=== PATIENT | female | born 1945 ===

== ENCOUNTER 2019-02-13 07:28 | Observation (INO) ==
[2019-02-13] MEDS ORDERED: ONDANSETRON 4 MG/2 ML VIAL IV PRN (10:57)
[2019-02-13] MEDS ORDERED: PROMETHAZINE 25 MG/1 ML VIAL IM PRN (10:57)
[2019-02-13] MEDS ORDERED: LABETALOL 20 MG/4 ML SYRINGE IV ONE (11:12)
[2019-02-13 11:17] LABS: Apearance,Urine CLEAR (Clear); Bacteria,Urine Occasional /HPF (Few); Bilirubin,Urine Negative (Negative); Blood, Urine Negative (Negative); Glucose,Urine (UA) Negative (Negative); Hyaline Casts,Urine 3 /LPF (0-3); Ketones,Urine 5 mg/dL (Negative); Mucus,Urine Occasional /LPF (Occasional); Nitrite,Urine Negative (Negative); Protein,Urine Negative; RBC,Urine 6 /HPF (0-4); Squamous Epithelial Cell,Urine Occasional /HPF (0-10); Urine Color Yellow (Yellow); Urine Specific Gravity 1.025 (1.001-1.035); Urine Urobilinogen < 2.0 EU/DL (0.2-1.0); WBC,Urine <1 /HPF (0-6)
[2019-02-13 11:30] LABS: Thyroid Stimulating Hormone 0.77 uIU/ml (0.358-3.74)
[2019-02-13] MEDS: amLODIPine 10 MG TABLET PO SCH (12:56)
[2019-02-13] MEDS: SODIUM CHLORIDE 0.9% 1,000 ML IV SCH ×2 (12:57→20:59)
[2019-02-13] MEDS ORDERED: ENOXAPARIN 30 MG/0.3 ML SYRINGE SUBCUT SCH (21:00)
[2019-02-13] MEDS: DICYCLOMINE 20 MG TABLET PO SCH (21:41)
[2019-02-13] MEDS: carvediloL 12.5 MG TABLET PO SCH (21:41)
[2019-02-14 05:15] LABS: Basophils % 0.2 % (0.0-0.8); Eosinophils # 0.2 10*3/uL (0.0-0.87); Eosinophils % 2.7 % (0.00-10.9); Hematocrit 37.6 VOL% (35.7-47.0); Hemoglobin 11.7 GM/DL (12.0-16.0); Immature Granulocytes % 0.5 %; Immature Granulocytes Absolute 0.03 #; Lymphocytes # 1.2 10*3/uL (1.4-4.0); Lymphocytes % 21.5 % (21.3-54.2); Mean Corpuscular HGB Conc 31.1 GM/DL (32-36); Mean Corpuscular Volume 97.9 FL (87-102); Mean Platelet Volume 12.2 FL (9.6-12.0); Neutrophils % 64.1 % (38.7-73.9); Platelet Count 135 T/CUMM (130-400); Red Blood Count 3.84 MC/CUMM (3.8-5.5); Red Cell Distribution Width 14.1 % (9.3-17.3); White Blood Count 5.6 T/CUMM (4-12)
[2019-02-14 05:52] LABS: Calcium 7.3 MG/DL (8.5-10.1); Osmolality,Calculated 287.8 MOS/KG (273-304)
[2019-02-14] MEDS ORDERED: ASPIRIN EC 325 MG TABLET PO SCH (09:00)
[2019-02-14] MEDS ORDERED: PYRIDOSTIGMINE 60 MG TABLET PO SCH (09:00)
[2019-02-14] MEDS ORDERED: PANTOPRAZOLE 40 MG TABLET PO SCH (09:00)
[2019-02-14] MEDS ORDERED: APIXABAN 2.5 MG TABLET PO SCH (09:00)
[2019-02-14] MEDS ORDERED: cycloSPORINE OPH EMUL 1 VIAL BOTH EYES SCH (09:00)
[2019-02-14] MEDS ORDERED: hydroCHLOROthiazide 12.5 MG CAPSULE PO SCH (09:00)
[2019-02-14] MEDS ORDERED: MULTIVITAMIN (CENTRUM) TABLET PO SCH (09:00)
[2019-02-14] MEDS ORDERED: CETIRIZINE 10 MG TABLET PO SCH (09:00)
[2019-02-14] MEDS ORDERED: LISINOPRIL 20 MG TABLET PO SCH (09:00)
[2019-02-14] MEDS ORDERED: CALCIUM (CARBONATE)/VITAMIN D 500 MG-200 UNIT TABLET PO SCH (09:00)
[2019-02-14] MEDS ORDERED: predniSONE 10 MG TABLET PO SCH (09:00)
[2019-02-14] MEDS ORDERED: CALCIUM CARBONATE CHEW 500 MG TABLET PO SCH (09:00)
[2019-02-14] MEDS ORDERED: DICLOFENAC 1% GEL 100 GM TUBE TOP SCH (09:00)
[2019-02-14] MEDS ORDERED: ERGOCALCIFEROL 50,000 UNIT CAPSULE PO SCH (09:00)
[2019-02-14] MEDS: carvediloL 12.5 MG TABLET PO SCH (09:56)
[2019-02-14] MEDS: DICYCLOMINE 20 MG TABLET PO SCH (09:57)
[2019-02-14] MEDS: amLODIPine 10 MG TABLET PO SCH (10:36)
[2019-02-14 17:33] VITALS: BP 109/58
== END 2019-02-14 16:45 | disposition home or self-care (01) ==
LOC: EDUNIT# → EDBD → N.ED 07:28 → N.EDINP 07:28 → N.4E 11:29
PROVIDERS: ADMIT Hospitalist; ATTEND Hospitalist